=== PATIENT | female | born 1945 | race Caucasian/White ===

== ENCOUNTER 2019-03-20 08:00 | Outpatient (CLI) | payer MEDICARE, OTHER ==
[~2019-03-20] VITALS: Ht 162.6 cm; Wt 54.0 kg
[2019-03-20] MEDS ORDERED: PRAVASTATIN SOD10 MG PO (10:22)
[2019-03-20] MEDS ORDERED: SYNTHROID75 MCG PO (10:22)
[2019-03-20] MEDS ORDERED: VITAMIN D31000 UNIT PO (10:23)
[2019-03-20] MEDS ORDERED: KRILL OIL 1,001 EAC1 PO (10:23)
[2019-03-20] MEDS ORDERED: UROCIT-K10 MEQ PO (10:24)
[2019-03-20] MEDS ORDERED: MULTI-DAY VITAM1 TAB PO (10:25)
[2019-03-20] MEDS ORDERED: METANX PO (10:26)
[2019-03-20] MEDS ORDERED: OPTIVE SENSITI1 EACH EACH EYE (10:27)
[2019-03-20 11:52] LABS: CALCIUM 9.1 mg/dL (8.5-10.1); CARBON DIOXIDE 28.2 mmol/L (21.0-32.0); CREATININE - SERUM 1.4 mg/dL (0.6-1.3); POTASSIUM - SERUM 4.2 mmol/L (3.5-5.1)
[2019-03-20 12:07] LABS: HEMATOCRIT 36.1 % (36.0-48.0); HEMOGLOBIN 11.5 g/dL (12-16); MCH 29.7 pg (26.0-34.0); MCHC 31.9 g/dL (31.0-37.0); MCV 93.3 fL (80.0-100.0); MEAN PLATELET VOLUME 9.9 fL (7.4-10.4); RBC 3.87 10x6/uL (4.00-5.40); WBC 4.2 10x3/uL (4.8-10.8)
== END 2019-03-20 08:01 | disposition home or self-care (01) ==
LOC: D.OPS 08:00 → EDSTATUS 03-22 07:55 → D.OPS 03-22 07:55 → D.PAN 03-22 07:55 → D.OPS 03-22 08:00 → D.PAN 03-22 08:30 → D.OPS 03-22 09:20
PROVIDERS: Anesthesiology; ATTEND Urology
DX: N81.10 Cystocele, unspecified (principal)